=== PATIENT | male | born 1965 | race Caucasian/White ===

== ENCOUNTER 2016-08-06 09:30 | Emergency (ER) | payer BC ==
[2016-08-06 09:36] VITALS: BP 139/87
[2016-08-06] MEDS ORDERED: Acetaminophen TAB* 325 MG PO ONE (09:52)
--- NOTE | 2016-08-06 09:58 | ED ---
Skin Complaint - HPI Summary HPI Summary: Pt here w/ Lt hand laceration prior to arrival. Was at work cleaning a spackle knife when it accidentally slipped and cut the knuckle of his index finger. Bled so he applied a bandaid and pressure. Bleeding controlled at this time. Denies numbness, tingling, weakness. Does not believe any foreign body particles are present in wound as knife was clean. Moving finger well. Imms are UTD. - History of Current Complaint Chief Complaint: EDLacSutureRecheck Time Seen by Provider: 08/06/16 09:39 Stated Complaint: HAND LAC Hx Obtained From: Patient Pain Intensity: 5 - Additional Pertinent History Primary Care Physician: MARY - Allergy/Home Medications Allergies/Adverse Reactions: Allergies Allergy/AdvReac Type Severity Reaction Status Date / Time No Known Allergies Allergy Verified 02/08/15 16:38 PMH/Surg Hx/FS Hx/Imm Hx Previously Healthy: Yes Endocrine/Hematology History: Reports: Hx Diabetes - CONTROLLED BY DIET and metformin Denies: Hx Anticoagulant Therapy, Hx Blood Disorders, Hx Bone Marrow Disease , Hx Sickle Cell Disease, Hx Anemia Cardiovascular History: Denies: Hx Congestive Heart Failure, Hx Hypertension GI History: Reports: Hx Ulcer Denies: Hx Cirrhosis, Hx Crohn's Disease, Hx Diverticulosis, Hx Gall Bladder Disease, Hx Gastroesophageal Reflux Disease History: Denies: Hx Kidney Stones, Hx Renal Disease Sensory History: Denies: Hx Cataracts, Hx Contacts or Glasses, Hx Eye Injury, Hx Eye Prosthesis Opthamlomology History: Denies: Hx Cataracts, Hx Contacts or Glasses, Hx Eye Injury, Hx Eye Prosthesis - Surgical History Surgery Procedure, Year, and Place: APPENDECTOMY Hx Anesthesia Reactions: No - Immunization History Date of Tetanus Vaccine: Unk Date of Influenza Vaccine: None Infectious Disease History: No Infectious Disease History: Denies: Hx of Known/Suspected MRSA, History Other Infectious Disease, Traveled Outside the [place] in Last 30 Days - Family History Known Family History: Positive: None - Social History Alcohol Use: Weekly Alcohol Amount: 3-4x times a wk Hx Substance Use: No Substance Use Type: Reports: None Smoking Status (MU): Current Every Day Smoker Type: Cigarettes Amount Used/How Often: 1 ppd "or less" Length of Time of Smoking/Using Tobacco: 20 yrs Have You Smoked in the Last Year: Yes Review of Systems Negative: Fever, Chills Negative: Chest Pain Negative: Shortness Of Breath Positive: Nausea - gets queasy w/ pain, blood, needles Positive: no symptoms reported Musculoskeletal: Other - see HPI Skin: Other - see HPI Neurological: Negative Positive: Anxious All Other Systems Reviewed And Are Negative: Yes Physical Exam Triage Information Reviewed: Yes Vital Signs On Initial Exam: Initial Vitals Temp Pulse Resp BP Pulse Ox 97.2 F 84 20 139/87 98 08/06/16 09:32 08/06/16 09:32 08/06/16 09:32 08/06/16 09:32 08/06/16 09:32 Vital Signs Reviewed: Yes Appearance: Positive: Well-Appearing, No Pain Distress, Well-Nourished Skin: Positive: Warm - linear laceration over dorsal aspect of 2nd MCP joint - no active bleeding, subcutaneous tissue observed Head/Face: Positive: Normal Head/Face Inspection Eyes: Positive: Normal, EOMI ENT: Positive: Hearing grossly normal, Pharynx normal - mucosa moist Respiratory/Lung Sounds: Positive: Breath Sounds Present Cardiovascular: Positive: Normal, Pulses are Symmetrical in both Upper and Lower Extremities - cap refill < 2 secs Musculoskeletal: Positive: Normal, Strength/ROM Intact Neurological: Positive: Normal, Sensory/Motor Intact, Alert, Oriented to Person Place, Time Psychiatric: Positive: Normal - concerned Procedures - Laceration/Wound Repair 1 Location: upper extremity - 2ND MCP OF LT INDEX FINGER Description: Linear Length, Depth and Shape: 1.5CM X 3mm Betadine Prep?: No - hibaclens irrigation with alcohol skin prep Closure: Skin Adhesive, SteriStrips - 3 w/ finger splint Layer Closure?: No Sterile Dressing Applied?: Yes - dermabond + steristrips + DONYA wrap Diagnostics - Vital Signs Vital Signs Temp Pulse Resp BP Pulse Ox 08/06/16 09:32 97.2 F 84 20 139/87 98 - Laboratory Lab Statement: Any lab studies that have been ordered have been reviewed, and results considered in the medical decision making process. Course/Dx - Course Course Of Treatment: Conversation w/ pt re: sutures vs. dermabond plus steristrips - pt prefers steristrips and dermabond - understands importance of keeping joint immobilized, dry and clean in order for skin to heal w/o infection. Advised to f/u w/ PCP for wound check. Reviewed danger s/sx of when to return to ED. Pt agrees w/ plan. - Diagnoses Provider Diagnoses: FINGER LACERATION Discharge - Discharge Plan Condition: Stable Disposition: HOME Patient Education Materials: Finger Laceration (ED), Skin Adhesive Care (ED), Steristrips (ED) Referrals: Justo Martell MD [Primary Care Provider] - Additional Instructions: Rest, elevate, ice for pain You may take acetaminophen 650mg every 6 hours as needed for pain as well Keep wound clean and dry - do not wash or peel steristrips from skin as they will come off on their own. Keep splint in place for 10-14 days until wound heals. Follow-up with PCP for wound check in 5 days. *If you develop redness, streaking, swelling, purulent drainage, fever, chills seek medical attention sooner than later - may return here or see PCP
== END 2016-08-06 10:18 | disposition home or self-care (01) ==
LOC: ED 09:30
DX: S61.412A Laceration without foreign body of left hand, initial encounter (principal); R11.0 Nausea; W26.0XXA Contact with knife, initial encounter; Y93.9 Activity, unspecified; Y92.9 Unspecified place or not applicable; F17.210 Nicotine dependence, cigarettes, uncomplicated
CPT/HCPCS: 99281; A9270-GY

== ENCOUNTER 2016-09-27 11:31 | Emergency (ER) | payer BC ==
[2016-09-27] MEDS ORDERED: Cyclobenzaprine TAB* 10 MG PO ONE (11:46)
[2016-09-27] MEDS ORDERED: Ketorolac INJ* 60 MG/2 ML VIAL IM ONE (11:46)
--- NOTE | 2016-09-27 12:04 | ED ---
Back Pain - HPI Summary HPI Summary: Patient arrives to the ED with CC of low back pain after injury 3 weeks ago. He states he was picking up a 150lb tool box and felt immediate sharp pain in his right lower back which radiates to the right anterior leg and knee. He has been going to see a chiropractor with no relief. Pain is 9/10 and he notes to numbness and tingling in the right anterior leg, but no numbness in the back. Denies bladder or bowel dysfunction. His states there is a bulge in his lower back that was not there previously. - History of Current Complaint Chief Complaint: EDBackInjuryPain Stated Complaint: BACK PAIN Time Seen by Provider: 09/27/16 11:37 Hx Obtained From: Patient Onset/Duration: Sudden Onset Onset/Duration: Started Days Ago Timing: Constant Back Pain Location: Is Discrete @ - L4-L5 Severity Initially: Severe Severity Currently: Severe Pain Intensity: 9 Pain Scale Used: 0-10 Numeric Character: Aching, Spasmodic Aggravating Symptom(s): Lifting, Bending, Walking Alleviating Symptom(s): Rest, Position Associated Signs And Symptoms: Positive: Weakness, Numbness, Tingling - Risk Factors AAA Risk Factors: Negative TAD Risk Factors: Negative Cauda Equina Risk Factors: Negative Epidural Abscess Risk Factors: Negative - Allergies/Home Medications Allergies/Adverse Reactions: Allergies Allergy/AdvReac Type Severity Reaction Status Date / Time No Known Allergies Allergy Verified 02/08/15 16:38 PMH/Surg Hx/FS Hx/Imm Hx Previously Healthy: Yes Endocrine/Hematology History: Reports: Hx Diabetes - CONTROLLED BY DIET and metformin Denies: Hx Anticoagulant Therapy, Hx Blood Disorders, Hx Bone Marrow Disease , Hx Sickle Cell Disease, Hx Anemia Cardiovascular History: Denies: Hx Congestive Heart Failure, Hx Hypertension GI History: Reports: Hx Ulcer Denies: Hx Cirrhosis, Hx Crohn's Disease, Hx Diverticulosis, Hx Gall Bladder Disease, Hx Gastroesophageal Reflux Disease History: Denies: Hx Kidney Stones, Hx Renal Disease Sensory History: Denies: Hx Cataracts, Hx Contacts or Glasses, Hx Eye Injury, Hx Eye Prosthesis Opthamlomology History: Denies: Hx Cataracts, Hx Contacts or Glasses, Hx Eye Injury, Hx Eye Prosthesis - Cancer History Hx Radiation Therapy: No Hx Palliative Cancer Treatment: No - Surgical History Surgery Procedure, Year, and Place: APPENDECTOMY Hx Anesthesia Reactions: No - Immunization History Date of Tetanus Vaccine: Unk Date of Influenza Vaccine: None Hx Pertussis Vaccination: No Immunizations Up to Date: No Infectious Disease History: Denies: Hx of Known/Suspected MRSA, History Other Infectious Disease, Traveled Outside the [place] in Last 30 Days - Family History Known Family History: Positive: None - Social History Occupation: Employed Full-time Lives: With Family Alcohol Use: None Alcohol Amount: 3-4x times a wk Hx Substance Use: No Substance Use Type: Reports: None Hx Tobacco Use: Yes Smoking Status (MU): Current Every Day Smoker Type: Cigarettes Do You Chew or Dip Tobacco: No Amount Used/How Often: 1 ppd "or less" Have You Chewed or Dipped Tobacco in the LAST YEAR: No Length of Time of Smoking/Using Tobacco: 20 yrs Have You Smoked in the Last Year: Yes Review of Systems Constitutional: Negative Cardiovascular: Negative Respiratory: Negative Positive: no symptoms reported, see HPI Positive: Arthralgia - lumbar spine around L4-S1 pain on palpation, Myalgia Skin: Negative Positive: Weakness, Paresthesia, Numbness Psychological: Normal All Other Systems Reviewed And Are Negative: Yes Physical Exam Triage Information Reviewed: Yes Vital Signs On Initial Exam: Initial Vitals Temp Pulse Resp BP Pulse Ox 98.4 F 90 20 164/95 99 09/27/16 11:33 09/27/16 11:33 09/27/16 11:33 09/27/16 11:33 09/27/16 11:33 Vital Signs Reviewed: Yes Appearance: Positive: Well-Nourished, Pain Distress Skin: Positive: Warm, Skin Color Reflects Adequate Perfusion Head/Face: Positive: Normal Head/Face Inspection Neck: Positive: Supple, No Lymphadenopathy Respiratory/Lung Sounds: Positive: Clear to Auscultation, Breath Sounds Present Cardiovascular: Positive: Normal, RRR, Pulses are Symmetrical in both Upper and Lower Extremities Musculoskeletal: Positive: Limited @ - rotation, Abnormal @ - L4-S1, Pain @ - L4 -S1 Neurological: Positive: Sensory/Motor Intact, Speech Normal Psychiatric: Positive: Normal AVPU Assessment: Alert - [place] Coma Scale Coma Scale Total: 15 Diagnostics - Vital Signs Vital Signs Temp Pulse Resp BP Pulse Ox 09/27/16 11:36 98.4 F 84 20 164/95 99 09/27/16 11:33 98.4 F 90 20 164/95 99 - Laboratory Lab Statement: Any lab studies that have been ordered have been reviewed, and results considered in the medical decision making process. 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 IN ADDITION AT THE L5-S1 LEVEL THERE IS A SMALL RIGHT POSTEROLATERAL DISC PROTRUSION WHICH CAUSES MILD MASS EFFECT ON THE RIGHT S1 NERVE ROOT IN THE LATERAL RECESS. IF THE PATIENT'S SYMPTOMS PERSIST, RECOMMEND MR IMAGING. Back Pain Course/Dx - Course Course Of Treatment: Patient sent to CT. CT results showed: IMPRESSION: MILD DIFFUSE LUMBAR SPONDYLOSIS CAUSING MILD SPINAL CANAL NARROWING AT THE. L2-L3, L3-L4 AND L4-L5 LEVELS. IN ADDITION AT THE L5-S1 LEVEL THERE IS A SMALL RIGHT. POSTEROLATERAL DISC PROTRUSION WHICH CAUSES MILD MASS EFFECT ON THE RIGHT S1 NERVE ROOT IN. THE LATERAL RECESS. IF THE PATIENT'S SYMPTOMS PERSIST, RECOMMEND MR IMAGING. Given follow up with Dr. Meek. Flexeril and percoset given for pain. Encouraged rest. Educated about disc herniations. Patient OK to follow up with [facility] for discharge. During stay he was given flexeril and percoset and toradol with minimal relief. - Diagnoses Differential Diagnosis/HQI/PQRI: Positive: Fracture, Herniated Disc, Strain, Sprain Provider Diagnoses: Herniated disc Discharge - Discharge Plan Condition: Stable Disposition: HOME Prescriptions: Cyclobenzaprine TAB* [Flexeril TAB*] 10 mg PO BID PRN #10 tab PRN Reason: Pain oxyCODONE/Acetamin 10/325(NF) [Percocet 10/325 (NF)] 1 tab PO Q6H #16 tab MDD 4 Patient Education Materials: Lumbar Disc Herniation (ED), Lumbar Radiculopathy (ED) Referrals: Cali Meek MD [Medical Doctor] - Justo Martell MD [Primary Care Provider] - Additional Instructions: Dx: Herniated Disc Flexeril: This medication is a muscle relaxant and can help relieve muscle spasms, muscle strain, or pain sensations. Flexeril can cause side effects that may impair your thinking or reactions. Be careful if you drive or do anything that requires you to be awake and alert. Avoid drinking alcohol, which can increase some of the side effects of Flexeril. Ibuprofen 600mg three times daily with meals for discomfort. For pain not well controlled with ibuprofen, you may supplement with Oxycodone. Return to ED if symptoms worsen or fail to improve, notice worsening swelling, warmth or redness around the joint, develop fever, or pain is uncontrolled with OTC medications. Moist heat to the area for comfort. Warm showers or baths may improve symptoms. It is important to remain mobile as tolerated to prevent stiffening of the joints and delay healing. Follow up with your PCP. Follow up with Cali TrevinosMD office. If symptoms become worse, come back to ED
--- NOTE | 2016-09-27 12:37 | RAD ---
INDICATION: Low back pain. COMPARISON: There are no prior studies available for comparison. TECHNIQUE: Contiguous axial sections were obtained beginning above the T12 vertebra and continuing through the L5-S1 disc space. Images were reconstructed in the sagittal and coronal planes. FINDINGS: The vertebra are in normal alignment. No fracture is seen. At the L2-L3 level there is a mild broad-based disc bulge and mild hypertrophic changes within the facet joints. There is mild spinal canal narrowing. Neural foramen appear patent on both sides. At the L3-L4 level there is a mild broad-based disc bulge and mild hypertrophic changes within the facet joints. There is mild spinal canal narrowing. Neural foramen appear patent on both sides. At the L4-L5 level there is again a mild broad-based is bulge and mild hypertrophic changes within the facet joints. There is mild to moderate spinal canal narrowing and mild bilateral neural foraminal narrowing. At the L5-S1 level there is a small right posterior lateral disc protrusion which abuts and slightly displaces the right S1 nerve root in the lateral recess. No spinal canal narrowing is present. There are mild hypertrophic changes within the facet joints. Neural foramen appear patent on both sides. IMPRESSION: MILD DIFFUSE LUMBAR SPONDYLOSIS CAUSING MILD SPINAL CANAL NARROWING AT THE L2-L3, L3-L4 AND L4-L5 LEVELS. IN ADDITION AT THE L5-S1 LEVEL THERE IS A SMALL RIGHT POSTEROLATERAL DISC PROTRUSION WHICH CAUSES MILD MASS EFFECT ON THE RIGHT S1 NERVE ROOT IN THE LATERAL RECESS. IF THE PATIENT'S SYMPTOMS PERSIST, RECOMMEND MR IMAGING.
[2016-09-27] MEDS ORDERED: HYDROcodone/ACETAMIN 5-325 MG* 1 TAB PO ONE (12:51)
[2016-09-27 13:08] VITALS: BP 148/82
== END 2016-09-27 13:07 | disposition home or self-care (01) ==
LOC: ED 11:31
DX: M51.26 Other intervertebral disc displacement, lumbar region (principal); M47.896 Other spondylosis, lumbar region; E11.9 Type 2 diabetes mellitus without complications; Z79.84 Long term (current) use of oral hypoglycemic drugs; F17.210 Nicotine dependence, cigarettes, uncomplicated
CPT/HCPCS: 72131; 96372; 99282; A9270-GY; J1885

== ENCOUNTER 2016-11-17 15:53 | Emergency (ER) | payer BC ==
[2016-11-17] MEDS ORDERED: Pantoprazole IV* 40 MG IV ONE (16:37)
[2016-11-17] MEDS ORDERED: Metoclopramide IV* 5 MG/ML 2 ML VIAL IV ONE (16:37)
[2016-11-17] MEDS ORDERED: HYDROmorphone* 1 MG/ML 1 ML SYR IV ONE (16:37)
[2016-11-17] MEDS ORDERED: NS 0.9% 1000 ML* 3,000 ML IV ONE (16:37)
[2016-11-17] MEDS ORDERED: Ondansetron INJ* 2 MG/ML VIAL IV ONE (19:00)
--- NOTE | 2016-11-17 19:01 | ED ---
[place] Nicole Salem, scribed for Zoltan Cullen MD on 11/17/16 at 1636 . Abdominal Pain/Male - HPI Summary HPI Summary: Patient is a 51 y/o M who presents to the ED with epigastric abd pain since 0500 today. He states that he has been chills and vomiting since onset of pain, but he denies CP, SOB, or fever. PMHx of ulcer (6) and diverticulitis. PSHx of appendectomy, approximately 1year ago. Pt has not taken any pain medications, but he took Zofran at 0300; however, vomited after taking. PMHx of HLD as well. - History of Current Complaint Chief Complaint: EDAbdPain Stated Complaint: VOMITING,FEVER,CHILLS,ABD PAIN Time Seen by Provider: 11/17/16 16:23 Hx Obtained From: Patient Onset/Duration: Gradual Onset, Lasting Hours, Still Present Timing: Constant Severity Initially: Moderate Severity Currently: Moderate Pain Intensity: 9 Pain Scale Used: 0-10 Numeric Location: Epigastric Radiates: No Character: Sharp Aggravating Factor(s): Food Alleviating Factor(s): NPO Associated Signs And Symptoms: Positive: Vomiting, Other - Abd pain. - Allergies/Home Medications Allergies/Adverse Reactions: Allergies Allergy/AdvReac Type Severity Reaction Status Date / Time No Known Allergies Allergy Verified 11/17/16 16:11 PMH/Surg Hx/FS Hx/Imm Hx Endocrine/Hematology History: Reports: Hx Diabetes - CONTROLLED BY DIET and metformin Denies: Hx Anticoagulant Therapy, Hx Blood Disorders, Hx Bone Marrow Disease , Hx Sickle Cell Disease, Hx Anemia Cardiovascular History: Denies: Hx Congestive Heart Failure, Hx Hypertension GI History: Reports: Hx Ulcer Denies: Hx Cirrhosis, Hx Crohn's Disease, Hx Diverticulosis, Hx Gall Bladder Disease, Hx Gastroesophageal Reflux Disease History: Denies: Hx Kidney Stones, Hx Renal Disease Sensory History: Denies: Hx Cataracts, Hx Contacts or Glasses, Hx Eye Injury, Hx Eye Prosthesis Opthamlomology History: Denies: Hx Cataracts, Hx Contacts or Glasses, Hx Eye Injury, Hx Eye Prosthesis - Cancer History Hx Radiation Therapy: No Hx Palliative Cancer Treatment: No - Surgical History Surgery Procedure, Year, and Place: APPENDECTOMY Hx Anesthesia Reactions: No - Immunization History Date of Tetanus Vaccine: Unk Date of Influenza Vaccine: None Infectious Disease History: Denies: Hx of Known/Suspected MRSA, History Other Infectious Disease, Traveled Outside the [place] in Last 30 Days - Family History Known Family History: Negative: Cardiac Disease, Hypertension - Social History Alcohol Use: None Alcohol Amount: 3-4x times a wk Hx Substance Use: No Substance Use Type: Reports: None Hx Tobacco Use: Yes Smoking Status (MU): Current Every Day Smoker Type: Cigarettes Amount Used/How Often: 1 ppd "or less" Length of Time of Smoking/Using Tobacco: 20 yrs Have You Smoked in the Last Year: Yes Review of Systems Positive: Chills. Negative: Fever Negative: Chest Pain Negative: Shortness Of Breath Positive: Abdominal Pain, Nausea All Other Systems Reviewed And Are Negative: Yes Physical Exam - Summary Physical Exam Summary: The patient is well-nourished and in no acute pain. Mild distress. Alert and oriented. The skin is warm and dry and skin color reflects adequate perfusion. HEENT: The head is normocephalic and atraumatic. The pupils are equal and reactive. The conjunctivae are clear and without drainage. Nares are patent and without drainage. Mouth reveals moist mucous membranes and the throat is without erythema and exudate. The external ears are intact. The ear canals are patent and without drainage. The tympanic membranes are intact. DMM. Neck is supple with full range of motion and non-tender. There are no carotid bruits. There is no neck vein distension. Respiratory: Chest is non-tender. Lungs are clear to auscultation and breath sounds are symmetrical and equal. Cardiovascular: Heart is regular rate and rhythm. There is no murmur or rub auscultated. There is no peripheral edema and pulses are symmetrical and equal. Abdomen: The abdomen is soft. Marked upper gastric and RLQ tenderness. Tender to percussion. Mildly distended abd. Musculoskeletal: There is no back pain noted. Extremities are non-tender with full range of motion. There is good capillary refill. Neurological: Patient is alert and oriented to person, place and time. The patient has symmetrical motor strength in all four extremities. Psychiatric: The patient has an appropriate affect and does not exhibit any anxiety or depression. Triage Information Reviewed: Yes Vital Signs On Initial Exam: Initial Vitals Temp Pulse Resp BP Pulse Ox 97.7 F 91 20 187/103 100 11/17/16 16:11 11/17/16 16:11 11/17/16 16:11 11/17/16 16:11 11/17/16 16:11 Vital Signs Reviewed: Yes - Fel[place] Coma Scale Coma Scale Total: 15 Diagnostics - Vital Signs Vital Signs Temp Pulse Resp BP Pulse Ox 11/17/16 16:26 98.2 F 81 16 174/93 100 11/17/16 16:11 97.7 F 91 20 187/103 100 - Laboratory Lab Statement: Any lab studies that have been ordered have been reviewed, and results considered in the medical decision making process. - Radiology CXR Radiology Interpretation Completed By: Radiologist - IMPRESSION: see EMR pending radiology reading. - CT ABD/PELVIS CT Interpretation Completed By: Radiologist - IMPRESSION: see EMR pending radiology reading. - EKG 1705 EKG Interpretation: NSR @ 86 bpm with PACs. Nml axis. No STEMI. Abdominal Pain Fem Course/Dx - Course Course Of Treatment: 51 y/o M presents with epigastric abd pain since 0500 today. He states that he has been chills and vomiting since onset of pain, but he denies CP, SOB, or fever. Pt received Dilaudid, fluids, Reglan, and Protonix in ED. EKG shows NSR @ 86 bpm with PACs. Nml axis. No STEMI. CXR and CT taken. Pt signed out at shift change. Pending labs, CXR, and CT. - Diagnoses Differential Diagnosis/HQI/PQRI: Bowel Obstruction, Gall Bladder Disease, Ischemic Bowel, Pancreatitis, Peptic Ulcer Disease, Other - perforated viscus Provider Diagnoses: Abdominal pain - Critical Care Time Critical Care Time: 30-74 min - 30 minutes Discharge - Discharge Plan Condition: Stable Disposition: OTHER Discharge Disposition Comment: Signed out to Dr. Apple. Referrals: Cali Mathews MD [Primary Care Provider] - The documentation as recorded by the [place] calderon Salem accurately reflects the service I personally performed and the decisions made by me, Zoltan Cullen MD.
[2016-11-17] MEDS ORDERED: HYDROmorphone* 2 MG/ML 1 ML SYR IV SLOW PU ONE (19:33)
[2016-11-17] MEDS ORDERED: NS 0.9% 1000 ML* 1,000 ML IV ONE (19:34)
[2016-11-17 20:04] LABS: Hematocrit 47 % (42-52); Hemoglobin 15.4 g/dl (14.0-18.0); Mean Corpuscular HGB Conc 33 g/dl (31-36); Mean Corpuscular Hemoglobin 31 pg (27-31); Mean Corpuscular Volume 94 fL (80-94); Mean Platelet Volume 9 um3 (7.4-10.4); Red Cell Distribution Width 13 % (10.5-15); White Blood Count 10.7 10^3/ul (3.5-10.8)
[2016-11-17 20:05] LABS: ALT 35 U/L (7-52); AST 20 U/L (13-39); Albumin 4.9 g/dL (3.2-5.2); Alkaline Phosphatase 63 U/L (34-104); Amylase 49 U/L (29-103); Anion Gap 11 mmol/L (2-11); Blood Urea Nitrogen 17 mg/dL (6-24); C Reactive Protein < 1.00 mg/L (< 5.00); CO2 Carbon Dioxide 24 mmol/L (22-32); Calcium 10.1 mg/dL (8.6-10.3); Chloride 102 mmol/L (101-111); EGFR African American 128.7 (>60); EGFR Non-African American 100.1 (>60); Globulin 2.8 g/dL (2-4); Glucose 196 mg/dL (70-100); Lipase 18 U/L (11.0-82.0); Potassium 3.7 mmol/L (3.5-5.0); Sodium 137 mmol/L (133-145); Total Protein 7.7 g/dL (6.4-8.9)
[2016-11-17 20:16] LABS: Urine Bacteria Absent (Absent); Urine Bilirubin Negative (Negative); Urine Glucose 1+(50 mg/dL) (Negative); Urine Nitrite Negative (Negative)
[2016-11-17 20:28] LABS: Creatine Kinase 114 U/L (10-223)
--- NOTE | 2016-11-17 20:42 | RAD ---
INDICATION: Epigastric pain. COMPARISON: CT February 08, 2015 TECHNIQUE: Axial source images were obtained from the hemidiaphragms to the symphysis pubis following administration of oral and intravenous contrast. 117 mL Omnipaque 300 was utilized. Coronal and sagittal reconstructed images were acquired. Lung bases: There is minor gravity dependent atelectasis in the lung bases. Liver: The liver is normal in size. There are no masses. There is no ductal dilatation. Gallbladder: There are no calcified gallstones. There is no evidence of wall thickening or pericholecystic fluid. Spleen: The spleen is normal in size. There are no masses. Pancreas: There is no focal pancreatic mass or ductal dilatation. Adrenal glands: There is no evidence of adrenal mass. Kidneys: The kidneys are normal in size and position. There are prompt nephrograms and there is prompt excretion bilaterally. There are no renal parenchymal masses. There is no evidence of nephrolithiasis. Adenopathy: There is no evidence of adenopathy by size criteria. Fluid collections: There are no free or localized fluid collections. Vessels:There are no significant atherosclerotic changes involving the aorta. There is no focal aneurysm. The iliac vessels are normal in caliber. The IVC appears normal. GI tract: There are no acute CT bowel findings. There is no obstruction. The stomach and small bowel appear normal. There are moderate diverticula of the sigmoid colon and scattered diverticula of the descending colon. There is no CT evidence of acute diverticulitis. There is appendectomy Pelvic organs: The prostate and seminal vesicles appear normal Bladder: There are no bladder masses. Abdominal and pelvic soft tissues: The extraperitoneal abdominal and pelvic soft tissues appear normal.. Osseous structures: There are no acute osseous findings. Other: None IMPRESSION: NO ACUTE CT FINDINGS. THERE ARE SIGMOID DIVERTICULA BUT NO CT EVIDENCE OF ACUTE DIVERTICULITIS.
[2016-11-17 20:55] LABS: Magnesium 1.8 mg/dL (1.9-2.7)
[2016-11-17 22:01] VITALS: BP 125/69
[2016-11-17] MEDS ORDERED: Magnesium Oxide TAB* 400 MG PO ONE (22:15)
[2016-11-17] MEDS ORDERED: Ondansetron ODT TAB* 4 MG PO ONE (22:47)
--- NOTE | 2016-11-18 02:07 | ED ---
I, Jair Mcguire, scribed for Cielo Apple MD on 11/17/16 at 1932 . Progress - Progress Note Progress Note: Signout pt from Dr. Cullen. This is a 51yo male c/o epigastric abdominal pain since 0500 today. Pt states he had bad back pain, so started taking alot of ibuprofen. Also admits ETOH 3x week. States he has hx PUD, has been scoped in the past. Denies melena, hematochezia. Pt reports chills and vomiting since the onset of pain. PHSx of appendectomy. Pending CT report and labs - Results/Orders Results/Orders: ABD/PELV CT W IMPRESSION: NO ACUTE CT FINDINGS. THERE ARE SIGMOID DIVERTICULA BUT NO CT EVIDENCE OF ACUTE DIVERTICULITIS. Re-Evaluation - Re-Evaluation First Eval Re-Evaluation Time: 19:31 Change: Unchanged - pt is still in pain. Epigastric tenderness. Good bowel sounds. We will give more pain med and IV fluids for his nausea and abdominal pain. Second Eval Re-Evaluation Time: 22:21 Comment: Discussed lab and imaging results with the pt, as well as pt's course of treatment and disposition. Upon re-evaluation, abdomen is soft non tender. No guarding, no rebound. Course/Dx - Course Course Of Treatment: Reviewed medication lists and known allergies. CT and labs do not reveal the source of pt's pain. With the ETOH, and large doses of ibuprofen, and hx PUD, suspect gastritis or early PUD. Pt is on omeprazole, has been scoped by Dr. Case in the past. Pt advised to have definite follow up with Dr. Case. Pt prescribed hydrocodone for his back pain, with zofran, so he does not need continued ibuprofen. Given only 3 day supply, advised to have definite follow up. Pt had slight low magnesium, replaced po. - Diagnoses Provider Diagnoses: Abdominal pain, Tobacco abuse disorder, Blood pressure under poor control, Hypomagnesemia - Critical Care Time Critical Care Time: 30-74 min - 30 minutes The documentation as recorded by the Maynor calderon Benjamin accurately reflects the service I personally performed and the decisions made by me, Cieol Apple MD.
== END 2016-11-17 23:05 | disposition home or self-care (01) ==
LOC: ED 15:53
DX: R10.9 Unspecified abdominal pain (principal); R11.10 Vomiting, unspecified; E83.42 Hypomagnesemia; F17.210 Nicotine dependence, cigarettes, uncomplicated
CPT/HCPCS: 36415; 74177; 80053; 81003; 81015; 82150; 82550; 83605; 83690; 83735; 84484; 85025; 85610; 86140; 93005; 96374; 96375; 99282; A9270-GY; J1170; J2405; Q9967

== ENCOUNTER 2016-12-16 16:17 | Emergency (ER) | payer BC ==
[2016-12-16 16:23] VITALS: BP 156/100
[2016-12-16] MEDS ORDERED: Ondansetron INJ* 2 MG/ML VIAL IV ONE (17:23)
[2016-12-16] MEDS ORDERED: Pantoprazole IV* 40 MG IV ONE (17:23)
[2016-12-16] MEDS: NS 0.9% 1000 ML* 2,000 ML IV ONE (17:57)
[2016-12-16] MEDS ORDERED: fentaNYL* 50 MCG/ML 2 ML VIAL (100 MCG VIAL) IV SLOW PU ONE ×2 (18:03→18:57)
[2016-12-16 18:13] LABS: Hematocrit 49 % (42-52); Hemoglobin 16.7 g/dl (14.0-18.0); Mean Corpuscular HGB Conc 34 g/dl (31-36); Mean Corpuscular Hemoglobin 32 pg (27-31); Mean Corpuscular Volume 95 fL (80-94); Mean Platelet Volume 8 um3 (7.4-10.4); Red Blood Count 5.18 10^6/ul (4.0-5.4); Red Cell Distribution Width 13 % (10.5-15); White Blood Count 9.2 10^3/ul (3.5-10.8)
[2016-12-16 18:29] LABS: ALT 34 U/L (7-52); AST 21 U/L (13-39); Albumin 4.6 g/dL (3.2-5.2); Alkaline Phosphatase 47 U/L (34-104); Amylase 36 U/L (29-103); Anion Gap 12 mmol/L (2-11); Blood Urea Nitrogen 17 mg/dL (6-24); C Reactive Protein < 1.00 mg/L (< 5.00); CO2 Carbon Dioxide 24 mmol/L (22-32); Calcium 9.8 mg/dL (8.6-10.3); Chloride 97 mmol/L (101-111); EGFR African American 121.7 (>60); EGFR Non-African American 94.7 (>60); Globulin 3.2 g/dL (2-4); Glucose 157 mg/dL (70-100); Lipase 16 U/L (11.0-82.0); Potassium 3.4 mmol/L (3.5-5.0); Sodium 133 mmol/L (133-145); Total Protein 7.8 g/dL (6.4-8.9)
[2016-12-16 18:30] LABS: Troponin I 0.01 ng/mL (<0.04)
[2016-12-16] MEDS ORDERED: Potassium Chlor TAB* 20 MEQ TAB.ER PO ONE (18:48)
--- NOTE | 2016-12-16 18:57 | RAD ---
HISTORY: Epigastric pain, right upper quadrant pain COMPARISONS: November 17, 2016 CT TECHNIQUE: Multiple transverse and longitudinal ultrasound images were obtained of the right upper quadrant of the abdomen using grayscale and color Doppler imaging. FINDINGS: LIVER: The liver is normal in shape, size, contour, and echogenicity. There are no focal parenchymal masses. There is normal hepatopedal flow of the portal vein on Doppler imaging. BILIARY TREE: There is no intrahepatic or extrahepatic biliary dilatation. The common duct measures 0.4 cm. GALLBLADDER: The gallbladder is well-visualized. There is no cholelithiasis, gallbladder wall thickening, pericholecystic fluid, or sonographic Musa sign. PANCREAS: The head of the pancreas is unremarkable. The tail of the pancreas is not well visualized secondary to overlying bowel gas. RIGHT KIDNEY: The right kidney is normal in shape, size, contour, and echogenicity. There is no hydronephrosis or nephrolithiasis. The right kidney measures 11.2 x 6.2 x 4.9 cm. AORTA AND IVC: The aorta and IVC are unremarkable. FLUID: There are no pleural effusions. There is no free fluid within the hepatorenal recess. OTHER FINDINGS: None. IMPRESSION: NO ACUTE SONOGRAPHIC PATHOLOGY OF THE VISUALIZED PORTION OF THE ABDOMEN
--- NOTE | 2016-12-17 19:51 | ED ---
Erma Nicole Alfonso, scribed for Sree Jacobs MD on 12/16/16 at 1728 . Abdominal Pain/Male - HPI Summary HPI Summary: This patient is a 51 year old M presenting to [facility] accompanied by with a chief complaint of epigastric abdominal pain since two days ago. He reports the pain in one inch underneath my ribs. Pt rates the pain 8/10 in severity. Symptoms aggravated and alleviated by nothing. Pt reports N/V. Pt denies CP, SOB , fever, chills, heart burn. Tobacco abuse disorder. - History of Current Complaint Chief Complaint: EDAbdPain Stated Complaint: ABD PAIN,VOMITING Time Seen by Provider: 12/16/16 17:16 Hx Obtained From: Patient Onset/Duration: Sudden Onset, Lasting Days - 2, Still Present Timing: Constant Severity Initially: Severe Severity Currently: Severe Pain Intensity: 8 Pain Scale Used: 0-10 Numeric Location: Epigastric Aggravating Factor(s): Nothing Alleviating Factor(s): Nothing Associated Signs And Symptoms: Positive: Nausea, Vomiting, Other - Negative chills, SOB, and heart burn.. Negative: Fever, Chest Pain - Allergies/Home Medications Allergies/Adverse Reactions: Allergies Allergy/AdvReac Type Severity Reaction Status Date / Time No Known Allergies Allergy Verified 11/17/16 16:11 PMH/Surg Hx/FS Hx/Imm Hx Endocrine/Hematology History: Reports: Hx Diabetes - CONTROLLED BY DIET and metformin Denies: Hx Anticoagulant Therapy, Hx Blood Disorders, Hx Bone Marrow Disease , Hx Sickle Cell Disease, Hx Anemia Cardiovascular History: Denies: Hx Congestive Heart Failure, Hx Hypertension, Hx Pacemaker/ICD Respiratory History: Denies: Hx Asthma GI History: Reports: Hx Ulcer Denies: Hx Cirrhosis, Hx Crohn's Disease, Hx Diverticulosis, Hx Gall Bladder Disease, Hx Gastroesophageal Reflux Disease History: Denies: Hx Kidney Stones, Hx Renal Disease Sensory History: Denies: Hx Cataracts, Hx Contacts or Glasses, Hx Eye Injury, Hx Eye Prosthesis, Hx Hearing Aid Opthamlomology History: Denies: Hx Cataracts, Hx Contacts or Glasses, Hx Eye Injury, Hx Eye Prosthesis Psychiatric History: Denies: Hx Panic Disorder - Cancer History Hx Radiation Therapy: No Hx Palliative Cancer Treatment: No - Surgical History Surgery Procedure, Year, and Place: APPENDECTOMY;. COLONOSCOPY/ENDOSCOPY Hx Anesthesia Reactions: No - Immunization History Date of Tetanus Vaccine: Unk Date of Influenza Vaccine: None Infectious Disease History: No Infectious Disease History: Denies: Hx of Known/Suspected MRSA, History Other Infectious Disease, Traveled Outside the [place] in Last 30 Days - Family History Known Family History: Negative: Cardiac Disease, Hypertension - Social History Alcohol Use: None Alcohol Amount: 3-4x times a wk Hx Substance Use: No Substance Use Type: Reports: None Hx Tobacco Use: Yes Smoking Status (MU): Current Every Day Smoker Type: Cigarettes Amount Used/How Often: 1 ppd "or less" Length of Time of Smoking/Using Tobacco: 20 yrs Have You Smoked in the Last Year: Yes Review of Systems Negative: Fever, Chills Negative: Chest Pain Negative: Shortness Of Breath Positive: Abdominal Pain - Epigastric, Vomiting, Nausea, Other - Negative heart burn All Other Systems Reviewed And Are Negative: Yes Physical Exam - Summary Physical Exam Summary: VITAL SIGNS: Reviewed. GENERAL: Patient is a well-developed and nourished male who is lying comfortable in the stretcher. Patient is not in any acute respiratory distress. HEAD AND FACE: Normocephalic and atraumatic. EYES: PERRLA, EOMI x 2, No injected conjunctiva. EARS: Hearing grossly intact. Ear canals and tympanic membranes are WNL. MOUTH: Oropharynx within normal limits. NECK: Supple, trachea is midline, no adenopathy, no JVD. CHEST: Symmetric, no tenderness at palpation LUNGS: Clear to auscultation bilaterally. No wheezing or crackles. CVS: RRR, S1 and S2 present, no murmurs or gallops appreciated. ABDOMEN: Soft. Epigastric tenderness. No signs of distention. Positive bowel sounds. No rebound no guarding, and no masses palpated. No abdominal bruit or pulsations. EXTREMITIES: FROM in all major joints, no edema, no cyanosis or clubbing. NEURO: Alert and oriented x 3. No acute neurological deficits. Speech is normal. SKIN: Dry and warm Triage Information Reviewed: Yes Vital Signs On Initial Exam: Initial Vitals Temp Pulse Resp BP Pulse Ox 98.6 F 98 20 156/100 99 12/16/16 16:20 12/16/16 16:20 12/16/16 16:20 12/16/16 16:20 12/16/16 16:20 Vital Signs Reviewed: Yes Diagnostics - Vital Signs Vital Signs Temp Pulse Resp BP Pulse Ox 12/16/16 16:22 98.6 F 99 20 156/100 99 12/16/16 16:20 98.6 F 98 20 156/100 99 - Laboratory Lab Results: Lab Results 12/16/16 12/16/16 12/16/16 Range/Units 17:52 17:52 17:52 WBC 9.2 (3.5-10.8) 10^3/ul RBC 5.18 (4.0-5.4) 10^6/ul Hgb 16.7 (14.0-18.0) g/dl Hct 49 (42-52) % MCV 95 H (80-94) fL MCH 32 H (27-31) pg MCHC 34 (31-36) g/dl RDW 13 (10.5-15) % Plt Count 276 (150-450) 10^3/ul MPV 8 (7.4-10.4) um3 Neut % (Auto) 57.1 (38-83) % Lymph % (Auto) 32.4 (25-47) % Villalba % (Auto) 9.2 H (1-9) % Eos % (Auto) 0.3 (0-6) % Baso % (Auto) 1.0 (0-2) % Absolute Neuts (auto) 5.3 (1.5-7.7) 10^3/ul Absolute Lymphs (auto) 3.0 (1.0-4.8) 10^3/ul Absolute Monos (auto) 0.8 (0-0.8) 10^3/ul Absolute Eos (auto) 0 (0-0.6) 10^3/ul Absolute Basos (auto) 0.1 (0-0.2) 10^3/ul Absolute Nucleated RBC 0.01 10^3/ul Nucleated RBC % 0.1 Sodium 133 (133-145) mmol/L Potassium 3.4 L (3.5-5.0) mmol/L Chloride 97 L (101-111) mmol/L Carbon Dioxide 24 (22-32) mmol/L Anion Gap 12 H (2-11) mmol/L BUN 17 (6-24) mg/dL Creatinine 0.85 (0.67-1.17) mg/dL Est GFR ( Amer) 121.7 (>60) Est GFR (Non-Af Amer) 94.7 (>60) BUN/Creatinine Ratio 20.0 (8-20) Glucose 157 H (70-100) mg/dL Lactic Acid 1.0 (0.5-2.0) mmol/L Calcium 9.8 (8.6-10.3) mg/dL Magnesium 2.0 (1.9-2.7) mg/dL Total Bilirubin 0.80 (0.2-1.0) mg/dL AST 21 (13-39) U/L ALT 34 (7-52) U/L Alkaline Phosphatase 47 (34-104) U/L Troponin I 0.01 (<0.04) ng/mL C-Reactive Protein < 1.00 (< 5.00) mg/L Total Protein 7.8 (6.4-8.9) g/dL Albumin 4.6 (3.2-5.2) g/dL Globulin 3.2 (2-4) g/dL Albumin/Globulin Ratio 1.4 (1-3) Amylase 36 (29-103) U/L Lipase 16 (11.0-82.0) U/L Result Diagrams: 12/16/16 17:52 12/16/16 17:52 Lab Statement: Any lab studies that have been ordered have been reviewed, and results considered in the medical decision making process. - EKG 1843 Cardiac Rate: NL - BPM 72 EKG Rhythm: Sinus Rhythm EKG Interpretation: No ST elevation - Additional Comments Diagnostic Additional Comments: Gallbladder US : NO ACUTE SONOGRAPHIC PATHOLOGY OF THE VISUALIZED PORTION OF THE ABDOMEN Abdominal Pain Fem Course/Dx - Course Course Of Treatment: This patient is a 51 year old M presenting to [facility] accompanied by with a chief complaint of epigastric abdominal pain since two days ago. He reports the pain in one inch underneath my ribs. Pt rates the pain 8/10 in severity. Symptoms aggravated and alleviated by nothing. Pt reports N/V. Pt denies CP, SOB, fever, chills, heart burn. Tobacco abuse disorder. Assessment/Plan: Test results with no significant abnormalities except for potassium of 3.4, for which the patient was given potassium chloride. Troponin is 0.01. EKG shows no ST elevation. Therefore, I have low suspicion for acute coronary symptoms. Patient was seen exactly one month ago for the same symptoms during which he had a CT A/P which showed no acute findings. Therefore, I ordered an US to r/o gallstones. The US shows no acute pathology. In the ED course patient give IV fluids, Zofran, and morphine for the pain. He was also given protonix for the epigastric pain. He report feeling better. Nausea and pain has improved. He will be discharge home and will ask to f/u with PCP and GI. I discussed all the findings and test results with the patient. Patient was instructed to return to the emergency room immediately if any of the symptoms return or worsens. They were explained the possibility of an early abdominal pathology which was not detected at this time despite the physical exam and testing. They understand and agree. Abdominal exam before discharge: Soft, NT. No signs of distention. BS present. No rebound no guarding, and no masses palpated. Patient is alert and oriented and hemodynamically stable. Patient is to follow up with primary care physician in the next 2 to 3 days. Patient agree and understands. - Diagnoses Provider Diagnoses: Abdominal pain Discharge - Discharge Plan Condition: Stable Disposition: HOME Prescriptions: Ondansetron TAB* [Zofran 4 MG Tab*] 4 mg PO Q6H PRN #12 tab PRN Reason: Vomiting Oxycodone W/ Acetaminophen [Percocet 7.5-325 mg (NF)] 1 tab PO Q6H PRN #12 tab MDD 4 tabs PRN Reason: Pain Pantoprazole TAB (NF) [Protonix TAB (NF)] 40 mg PO DAILY #14 tab Patient Education Materials: Acute Abdominal Pain (ED), Abdominal Pain (ED), Epigastric Pain (ED) Referrals: Anshul Vegas MD [Medical Doctor] - 3 Days Cali Mathews MD [Primary Care Provider] - 7 Days The documentation as recorded by the Erma calderon Alfonso accurately reflects the service I personally performed and the decisions made by me, Sree Jacobs MD.
== END 2016-12-16 19:53 | disposition home or self-care (01) ==
LOC: ED 16:17
DX: R10.13 Epigastric pain (principal); F17.210 Nicotine dependence, cigarettes, uncomplicated
CPT/HCPCS: 36415; 76705; 80053; 82150; 83605; 83690; 83735; 84484; 85025; 86140; 93005; 96360; 96374; 96375; 96376; 99282; A9270-GY; J2405; J3010

== ENCOUNTER 2017-02-24 14:15 | Observation (INO) | payer BC ==
[2017-02-24] MEDS ORDERED: Ondansetron INJ* 2 MG/ML VIAL IV ONE ×2 (15:08→21:00)
[2017-02-24] MEDS ORDERED: NS 0.9% 1000 ML* 1,000 ML IV ONE (15:08)
[2017-02-24] MEDS ORDERED: Pantoprazole IV* 40 MG IV ONE (15:08)
[2017-02-24 16:12] LABS: Hematocrit 46 % (42-52); Hemoglobin 15.7 g/dl (14.0-18.0); Mean Corpuscular HGB Conc 34 g/dl (31-36); Mean Corpuscular Hemoglobin 32 pg (27-31); Mean Corpuscular Volume 93 fL (80-94); Mean Platelet Volume 8 um3 (7.4-10.4); Red Blood Count 4.98 10^6/ul (4.0-5.4); Red Cell Distribution Width 13 % (10.5-15); White Blood Count 10.9 10^3/ul (3.5-10.8)
[2017-02-24 16:26] LABS: Albumin 4.7 g/dL (3.2-5.2); BUN/Creatinine Ratio 17.1 (8-20); C Reactive Protein 2.88 mg/L (< 5.00); Calcium 9.9 mg/dL (8.6-10.3); EGFR African American 126.9 (>60); EGFR Non-African American 98.7 (>60); Globulin 3.2 g/dL (2-4); Magnesium 1.8 mg/dL (1.9-2.7); Potassium 3.8 mmol/L (3.5-5.0); Total Bilirubin 0.7 mg/dL (0.2-1.0); Total Protein 7.9 g/dL (6.4-8.9)
[2017-02-24] MEDS ORDERED: Metoclopramide IV* 5 MG/ML 2 ML VIAL IV ONE ×2 (17:15→18:45)
[2017-02-24] MEDS ORDERED: Morphine INJ* 4 MG/ML 1 ML CARPUJECT IV ONE (17:49)
[2017-02-24] MEDS ORDERED: fentaNYL* 50 MCG/ML 2 ML VIAL (100 MCG VIAL) IV SLOW PU ONE (18:45)
[2017-02-24] MEDS: Magnesium Oxide TAB* 400 MG PO ONE (19:20)
--- NOTE | 2017-02-24 19:21 | RAD ---
INDICATION: Abdominal pain. COMPARISON: Comparison is made with a prior CT of the abdomen and pelvis from November 17, 2016. TECHNIQUE: Supine and decubitus views of the abdomen were obtained. FINDINGS: The small bowel and colon appear nondistended. No free intraperitoneal air is seen. IMPRESSION: NO EVIDENCE FOR ACUTE FINDING.
[2017-02-24 20:08] LABS: Urine Bacteria Absent (Absent); Urine Bilirubin Negative (Negative); Urine Glucose 1+(50 mg/dL) (Negative); Urine Nitrite Negative (Negative)
[2017-02-24 20:26] LABS: Benzodiazepine Urine Screen None Detected (None Detect)
[2017-02-24] MEDS ORDERED: NS 0.9% 1000 ML* 1,000 ML IV SCH (20:45)
[2017-02-24] MEDS ORDERED: Acetaminophen TAB* 325 MG PO PRN (20:46)
[2017-02-24] MEDS ORDERED: Albuterol 2.5 MG/3 ML NEB.SOL* (0.083%) INH PRN (20:46)
[2017-02-24] MEDS ORDERED: CMCS: Melatonin (NF) 3 MG TAB PO PRN (20:47)
[2017-02-24] MEDS ORDERED: Ondansetron INJ* 2 MG/ML VIAL IV PRN (20:47)
[2017-02-24] MEDS ORDERED: PROCHLORPERAZINE INJ 5 MG/ML 2 ML VIAL IV PRN (20:47)
[2017-02-24] MEDS ORDERED: Nicotine Inhaler* 10 MG AMP INH PRN (20:47)
[2017-02-24] MEDS ORDERED: oxyCODONE TAB* 5 MG TAB PO ONE (21:00)
[2017-02-24] MEDS: Docusate CAP* 100 MG PO SCH (22:05)
[2017-02-24] MEDS: HYDROmorphone INJ* 1 MG/ML CARPUJECT SYRINGE IV PRN (23:22)
[2017-02-25] MEDS: Cyclobenzaprine TAB* 10 MG PO PRN (03:44)
[2017-02-25] MEDS: HYDROmorphone INJ* 1 MG/ML CARPUJECT SYRINGE IV PRN ×6 (03:46→19:49)
--- NOTE | 2017-02-25 03:56 | HP ---
H&P (Free Text) History and Physical: PCP: Peter Mathews MD GI: Peter Case MD Date/Time: 02/24/20172044 CC: abdominal pain HPI: Mr Adame is a 51YO male HX gastric ulcers presenting reporting onset of abdominal pain 02/23 upon awakening, did not awaken. Describes it as a dull fire associated with too numerous to count emesis, subjective F/C, sweats, but no change in bowel/bladder, chest pain, SOB, cough, congestion, or other issues. He had similar issues in October/November of this year. Last saw Dr Case ~2 years ago. PMedHx gastric ulcers ruptured lumbar disc pre-DM2 Ambulatory Orders Atorvastatin* [Lipitor*] 10 mg PO DAILY 02/04/17 Gabapentin CAP(*) [Neurontin 300 CAP(*)] 300 mg PO TID 02/04/17 Hydrocodone-Acetaminophen [Hydrocodone/Acetaminophen 10-325 mg] 1 tab PO Q6HR PRN MDD 3 tabs 02/04/17 Omeprazole CAP* [Prilosec CAP* 20 MG] 20 mg PO DAILY 02/04/17 metFORMIN* [Glucophage 500 MG TAB *] 500 mg PO BEDTIME 02/04/17 oxyCODONE/Acetamin 10/325(NF) [Percocet 10/325 (NF)] 1 tab PO DAILY PRN Cyclobenzaprine TAB* [Flexeril 10 MG TAB*] 10 mg PO TID PRN MDD 2 02/24/17 Allergies No Known Allergies Allergy (Verified 02/04/17 15:14) PSurgHx appendectomy SocHx: 1PPD cigarettes, minimal alcohol, denies recreational drugs; lives with his ; works as a contractor; full code status FamHx: positive for DM2 ROS: as above, otherwise reviewed and all were negative vitals: Vital Signs Temp 36.9 C 02/25/17 03:05 Pulse 99 02/25/17 03:05 Resp 20 02/25/17 03:05 BP 153/82 02/25/17 03:05 Pulse Ox 99 02/24/17 21:21 Intake & Output 02/24/17 02/24/17 02/25/17 11:59 23:59 11:59 Intake Total 10 Balance 10 Weight 91.399 kg Intake: IV Fluids 10 Other: # Voids 0 Constitutional: NAD, normally developed, overweight white male HEENM: atraumatic; sclera/conjunctiva: non-icteric/mildly injected; hearing: clinically intact; oropharynx: clear, mucosa moist Neck: soft tissue: non-tender; thyroid: normal Pulmonary: clear to auscultation bilaterally, good aeration, no accessory muscle use CV: RR/RR, normal S1S2, no carotid bruit, no jugular venous distention, 2+ B DP/ PT, no edema Abdominal: soft, non-distended, moderate high epigastric point tenderness with voluntary guarding but no rebound/rigidity, normoactive bowel sounds, no hepatosplenomegaly or masses, no costovertebral angle tenderness Musculoskeletal: general: grossly intact, no palpable tenderness Integumental: normal appearance and texture of exposed skin Psychiatric orientation: AA&O to PPS affect: calm mood: cooperative eye contact: fair content: reliable responses: timely insight: fair Testing: Lab Results 02/24/17 02/24/17 02/24/17 Range/Units 15:45 15:45 15:45 WBC 10.9 H (3.5-10.8) 10^3/ul RBC 4.98 (4.0-5.4) 10^6/ul Hgb 15.7 (14.0-18.0) g/dl Hct 46 (42-52) % MCV 93 (80-94) fL MCH 32 H (27-31) pg MCHC 34 (31-36) g/dl RDW 13 (10.5-15) % Plt Count 315 (150-450) 10^3/ul MPV 8 (7.4-10.4) um3 Neut % (Auto) 80.8 (38-83) % Lymph % (Auto) 15.1 L (25-47) % Hickman % (Auto) 3.6 (1-9) % Eos % (Auto) 0.1 (0-6) % Baso % (Auto) 0.4 (0-2) % Absolute Neuts (auto) 8.8 H (1.5-7.7) 10^3/ul Absolute Lymphs (auto) 1.6 (1.0-4.8) 10^3/ul Absolute Monos (auto) 0.4 (0-0.8) 10^3/ul Absolute Eos (auto) 0 (0-0.6) 10^3/ul Absolute Basos (auto) 0 (0-0.2) 10^3/ul Absolute Nucleated RBC 0 10^3/ul Nucleated RBC % 0 Sodium 137 (133-145) mmol/L Potassium 3.8 (3.5-5.0) mmol/L Chloride 102 (101-111) mmol/L Carbon Dioxide 24 (22-32) mmol/L Anion Gap 11 (2-11) mmol/L BUN 14 (6-24) mg/dL Creatinine 0.82 (0.67-1.17) mg/dL Est GFR ( Amer) 126.9 (>60) Est GFR (Non-Af Amer) 98.7 (>60) BUN/Creatinine Ratio 17.1 (8-20) Glucose 186 H (70-100) mg/dL Calcium 9.9 (8.6-10.3) mg/dL Magnesium 1.8 L (1.9-2.7) mg/dL Total Bilirubin 0.70 (0.2-1.0) mg/dL AST 21 (13-39) U/L ALT 33 (7-52) U/L Alkaline Phosphatase 62 (34-104) U/L Ammonia 36 (16-53) mol/L Troponin I 0.00 (<0.04) ng/mL C-Reactive Protein 2.88 (< 5.00) mg/L Total Protein 7.9 (6.4-8.9) g/dL Albumin 4.7 (3.2-5.2) g/dL Globulin 3.2 (2-4) g/dL Albumin/Globulin Ratio 1.5 (1-3) Amylase 43 (29-103) U/L Lipase 18 (11.0-82.0) U/L Urine Color Urine Appearance Urine pH (5-9) Ur Specific [place] (1.010-1.030) Urine Protein (Negative) Urine Ketones (Negative) Urine Blood (Negative) Urine Nitrate (Negative) Urine Bilirubin (Negative) Urine Urobilinogen (Negative) Ur Leukocyte Esterase (Negative) Urine WBC (Auto) (Absent) Urine RBC (Auto) (Absent) Urine Bacteria (Absent) Urine Glucose (Negative) Urine Opiates Screen (None Detect) Ur Barbiturates Screen (None Detect) Ur Phencyclidine Scrn (None Detect) Ur Amphetamines Screen (None Detect) U Benzodiazepines Scrn (None Detect) Urine Cocaine Screen (None Detect) U Cannabinoids Screen (None Detect) 02/24/17 02/24/17 Range/Units 19:49 19:49 WBC (3.5-10.8) 10^3/ul RBC (4.0-5.4) 10^6/ul Hgb (14.0-18.0) g/dl Hct (42-52) % MCV (80-94) fL MCH (27-31) pg MCHC (31-36) g/dl RDW (10.5-15) % Plt Count (150-450) 10^3/ul MPV (7.4-10.4) um3 Neut % (Auto) (38-83) % Lymph % (Auto) (25-47) % Hickman % (Auto) (1-9) % Eos % (Auto) (0-6) % Baso % (Auto) (0-2) % Absolute Neuts (auto) (1.5-7.7) 10^3/ul Absolute Lymphs (auto) (1.0-4.8) 10^3/ul Absolute Monos (auto) (0-0.8) 10^3/ul Absolute Eos (auto) (0-0.6) 10^3/ul Absolute Basos (auto) (0-0.2) 10^3/ul Absolute Nucleated RBC 10^3/ul Nucleated RBC % Sodium (133-145) mmol/L Potassium (3.5-5.0) mmol/L Chloride (101-111) mmol/L Carbon Dioxide (22-32) mmol/L Anion Gap (2-11) mmol/L BUN (6-24) mg/dL Creatinine (0.67-1.17) mg/dL Est GFR ( Amer) (>60) Est GFR (Non-Af Amer) (>60) BUN/Creatinine Ratio (8-20) Glucose (70-100) mg/dL Calcium (8.6-10.3) mg/dL Magnesium (1.9-2.7) mg/dL Total Bilirubin (0.2-1.0) mg/dL AST (13-39) U/L ALT (7-52) U/L Alkaline Phosphatase (34-104) U/L Ammonia (16-53) mol/L Troponin I (<0.04) ng/mL C-Reactive Protein (< 5.00) mg/L Total Protein (6.4-8.9) g/dL Albumin (3.2-5.2) g/dL Globulin (2-4) g/dL Albumin/Globulin Ratio (1-3) Amylase (29-103) U/L Lipase (11.0-82.0) U/L Urine Color Yellow Urine Appearance Clear Urine pH 6.0 (5-9) Ur Specific [place] 1.030 (1.010-1.030) Urine Protein 1+(30 mg/dl) H (Negative) Urine Ketones 2+ H (Negative) Urine Blood Negative (Negative) Urine Nitrate Negative (Negative) Urine Bilirubin Negative (Negative) Urine Urobilinogen Negative (Negative) Ur Leukocyte Esterase Negative (Negative) Urine WBC (Auto) Trace(0-5/hpf) (Absent) Urine RBC (Auto) 2+(6-10/hpf) H (Absent) Urine Bacteria Absent (Absent) Urine Glucose 1+(50 mg/dl) H (Negative) Urine Opiates Screen Presumptive positive H (None Detect) Ur Barbiturates Screen None detected (None Detect) Ur Phencyclidine Scrn None detected (None Detect) Ur Amphetamines Screen None detected (None Detect) U Benzodiazepines Scrn None detected (None Detect) Urine Cocaine Screen None detected (None Detect) U Cannabinoids Screen None detected (None Detect) ECG, personally reviewed: NSR rate 83, no ischemia XRY 2v abdomen, personally reviewed: IMPRESSION: NO EVIDENCE FOR ACUTE FINDING. Impression: 51M HX gastric ulcers presenting with intractable epigastric pain and intractable N/V DIAGNOSIS & PLAN Primary intractable epigastric pain and intractable N/V : HX gastric ulcers : omeprazole : carafate : clear liquid diet : pain control : consider GI consult in AM if no improvement : supportive care Secondary pre-DM2 : check A1c : consistent carb diet : continue metformin Admission Rational: observation for intractable N/V & abdominal pain of uncertain etiology DVTp: CELIA Code Status: full HCP:
[2017-02-25] MEDS: NS 0.9% 1000 ML* 1,000 ML IV SCH ×3 (04:53→21:13)
[2017-02-25] MEDS ORDERED: Omeprazole CAP* 20 MG PO SCH (06:00)
[2017-02-25 06:09] LABS: Hematocrit 42 % (42-52); Mean Corpuscular HGB Conc 34 g/dl (31-36); Mean Corpuscular Hemoglobin 31 pg (27-31); Mean Corpuscular Volume 93 fL (80-94); Mean Platelet Volume 8 um3 (7.4-10.4); Red Blood Count 4.47 10^6/ul (4.0-5.4); Red Cell Distribution Width 13 % (10.5-15); White Blood Count 14.3 10^3/ul (3.5-10.8)
[2017-02-25 06:20] LABS: Calcium 8.7 mg/dL (8.6-10.3); EGFR African American 140.6 (>60); EGFR Non-African American 109.4 (>60); Potassium 3.5 mmol/L (3.5-5.0)
[2017-02-25] MEDS: Omeprazole CAP* 20 MG PO SCH (08:04)
[2017-02-25] MEDS: Gabapentin CAP(*) 300 MG PO SCH ×3 (08:04→19:52)
[2017-02-25] MEDS: Atorvastatin* 10 MG TAB PO SCH (08:04)
[2017-02-25] MEDS: Sucralfate TAB* 1 GM PO SCH ×3 (08:04→16:29)
[2017-02-25] MEDS: Docusate CAP* 100 MG PO SCH ×2 (08:05→19:50)
--- NOTE | 2017-02-25 17:18 | PN ---
Subjective Date of Service: 02/25/17 Interval History: Patient seen and examined at bedside. Pt states that his epigastric pain, N/V are improving. Denies fever, shortness of breath, chest discomfort, N/V/D. He reports chills last night. Pt is requesting to have an EGD if possible while here. He reports that he is hungry and is requesting more to eat. He denies recent NSAID use and states that he no longer uses NASAIDS since his last ulcer. Pt was specifically questioned about ibuprofen, Motrin, Alleve, Advil and Excedrin. Pt states that he has been taking his omeprazole regularly since he last had "issues" in October or November when he had stopped taking it. Family History: Unchanged from Admission Social History: Unchanged from Admission Past Medical History: Unchanged from Admission Objective Active Medications: Acetaminophen (Tylenol Tab*) 650 mg PO Q6H PRN Reason: FEVER/PAIN Albuterol (Ventolin 2.5 Mg/3 Ml Neb.Elvi*) 2.5 mg INH Q2H PRN Reason: SOB/ WHEEZING Atorvastatin Calcium (Lipitor*) 10 mg PO DAILY KAY Cyclobenzaprine HCl (Flexeril Tab*) 10 mg PO TID PRN Reason: SPASMS - MUSCLE Docusate Sodium (Colace Cap*) 200 mg PO BID KAY Gabapentin (Neurontin Cap(*)) 300 mg PO TID KAY Hydromorphone HCl (Dilaudid Inj*) 0.5 mg IV Q2H PRN Reason: PAIN Sodium Chloride (Ns 0.9% 1000 Ml*) 1,000 mls @ 125 mls/hr IV PER RATE [facility] Melatonin (Melatonin (Nf)) 3 mg PO BEDTIME PRN; Protocol Reason: Sleep Metformin HCl (Glucophage*) 500 mg PO BEDTIME KAY Nicotine (Nicotine Inhaler*) 10 mg INH Q2H PRN Reason: CRAVING Omeprazole (Prilosec Cap*) 20 mg PO DAILY@0730 [facility] Ondansetron HCl (Zofran Inj*) 4 mg IV Q6H PRN Reason: NAUSEA Prochlorperazine Edisylate (Compazine Inj*) 10 mg IV Q6H PRN Reason: NAUSEA Sucralfate (Carafate*) 1 gm PO AC [facility] Vital Signs 09/28/17 09/28/17 09/28/17 19:20 19:29 19:56 Temperature Pulse Rate 94 Respiratory 18 Rate Blood Pressure 159/87 (mmHg) O2 Sat by Pulse 97 Oximetry 02/24/17 02/24/17 02/24/17 21:00 21:10 21:21 Temperature 99.8 F 99.8 F Pulse Rate 92 99 Respiratory 22 22 Rate Blood Pressure 145/62 145/62 (mmHg) O2 Sat by Pulse 100 99 Oximetry 02/25/17 02/25/17 02/25/17 00:04 00:22 03:05 Temperature 98.8 F 98.5 F Pulse Rate 84 99 Respiratory 20 18 20 Rate Blood Pressure 143/78 153/82 (mmHg) O2 Sat by Pulse 96 Oximetry 02/25/17 02/25/17 02/25/17 03:12 03:44 03:46 Temperature 98.5 F Pulse Rate 99 Respiratory 20 20 20 Rate Blood Pressure 153/82 (mmHg) O2 Sat by Pulse 98 Oximetry 02/25/17 02/25/17 02/25/17 04:46 05:44 07:58 Temperature 98.4 F Pulse Rate 102 Respiratory 20 20 16 Rate Blood Pressure 148/83 (mmHg) O2 Sat by Pulse 97 Oximetry 02/25/17 02/25/17 02/25/17 08:02 08:04 08:05 Temperature 98.4 F Pulse Rate 102 Respiratory 16 18 18 Rate Blood Pressure 148/83 (mmHg) O2 Sat by Pulse 97 Oximetry 02/25/17 02/25/17 02/25/17 11:20 11:23 12:26 Temperature 98.1 F 98.1 F Pulse Rate 66 66 Respiratory 18 18 18 Rate Blood Pressure 117/66 117/66 (mmHg) O2 Sat by Pulse 97 97 Oximetry 02/25/17 02/25/17 02/25/17 13:26 15:17 16:29 Temperature 98.1 F Pulse Rate 87 Respiratory 18 16 18 Rate Blood Pressure 124/80 (mmHg) O2 Sat by Pulse 98 Oximetry Oxygen Devices in Use Now: None Appearance: NAD, laying in bed Ears/Nose/Mouth/Throat: Mucous Membranes Moist Respiratory: Symmetrical Chest Expansion and Respiratory Effort, Clear to Auscultation Cardiovascular: NL Sounds; No Murmurs; No JVD, RRR Abdominal: NL Sounds; No Tenderness; No Distention Extremities: No Edema Skin: No Rash or Ulcers Neurological: Alert and Oriented x 3, NL Muscle Strength and Tone Lines/Tubes/Other Access: Clean, Dry and Intact Peripheral IV - site benign Nutrition: Taking PO's Result Diagrams: 02/25/17 05:29 02/25/17 05:28 Assess/Plan/Problems-Billing Assessment: Mr. Adame is a 51 yo male with PMH significant for gastric ulcers and pre-DM who presented to the emergency room with complaints of sudden onset of epigastric/abdominal pain. - Patient Problems (1) Epigastric pain Code(s): R10.13 - EPIGASTRIC PAIN SNOMED Code(s): 19341970 Comment: - ? secondary to new gastric ulcers - Tolerating clear liquids - Reports that pain and N/V are improving - Continue omeprazole and carafate - Will advance to full liquids diet - Consider GI consult if worsening, if not f/u GI outpatient (2) Gastric ulcer Code(s): K25.9 - GASTRIC ULCER, UNSP ACUTE OR CHRONIC, W/O HEMOR OR PERF SNOMED Code(s): 753303233 Comment: - Hx secondary to NSAID use - Continue omeprazole and carafate (3) Pre-diabetes Code(s): R73.03 - PREDIABETES SNOMED Code(s): 809244645 Comment: - HgA1C 7.7 - Consitent carb diet once taking POs - Conitnue metformin (4) DVT prophylaxis Code(s): CNK4999 - SNOMED Code(s): 029770186 Comment: - TEDs (5) Patient is full code Code(s): Z78.9 - OTHER SPECIFIED HEALTH STATUS SNOMED Code(s): 611396428 Status and Disposition: OBV. Discharge to home when medically stable, possibly in the AM.
--- NOTE | 2017-02-25 18:17 | ED ---
Stewart Nicole Angela, scribed for Sree Jacobs MD on 02/24/17 at 1506 . Abdominal Pain/Male - HPI Summary HPI Summary: This pt is a 51 y/o male presenting to [facility] c/o abdominal pain, nausea, and vomiting since yesterday. Pt reports his GI doctor is Dr. Case, last time the pt saw him was 2 years ago. He additionally c/o chills. Pt denies fever, SOB , chest pain. He states having PMHx of 6 gastric ulcers. PSHx of appendectomy. - History of Current Complaint Chief Complaint: EDAbdPain Stated Complaint: STOMACH PAIN/VOMITING Hx Obtained From: Patient Onset/Duration: Lasting Days - 1 Timing: Lasting Days - 1 Pain Intensity: 7 Pain Scale Used: 0-10 Numeric Location: Diffuse Radiates: No Aggravating Factor(s): Nothing Alleviating Factor(s): Nothing Associated Signs And Symptoms: Positive: Nausea, Vomiting. Negative: Chest Pain , Back Pain, Diarrhea - Allergies/Home Medications Allergies/Adverse Reactions: Allergies Allergy/AdvReac Type Severity Reaction Status Date / Time No Known Allergies Allergy Verified 02/04/17 15:14 Home Medications: Home Medications Cyclobenzaprine TAB* [Flexeril 10 MG TAB*] 10 mg PO TID PRN MDD 2 02/24/17 [ History Confirmed 02/24/17] PMH/Surg Hx/FS Hx/Imm Hx Endocrine/Hematology History: Reports: Hx Diabetes - CONTROLLED BY DIET and metformin Denies: Hx Anticoagulant Therapy, Hx Blood Disorders, Hx Bone Marrow Disease , Hx Sickle Cell Disease, Hx Anemia Cardiovascular History: Reports: Hx Hypercholesterolemia Denies: Hx Congestive Heart Failure, Hx Hypertension, Hx Pacemaker/ICD Respiratory History: Denies: Hx Asthma GI History: Reports: Hx Ulcer Denies: Hx Cirrhosis, Hx Crohn's Disease, Hx Diverticulosis, Hx Gall Bladder Disease, Hx Gastroesophageal Reflux Disease History: Denies: Hx Kidney Stones, Hx Renal Disease Musculoskeletal History: Reports: Hx Back Problems Sensory History: Denies: Hx Cataracts, Hx Contacts or Glasses, Hx Eye Injury, Hx Eye Prosthesis, Hx Hearing Aid Opthamlomology History: Denies: Hx Cataracts, Hx Contacts or Glasses, Hx Eye Injury, Hx Eye Prosthesis Psychiatric History: Denies: Hx Panic Disorder - Cancer History Hx Radiation Therapy: No Hx Palliative Cancer Treatment: No - Surgical History Surgery Procedure, Year, and Place: APPENDECTOMY;. COLONOSCOPY/ENDOSCOPY Hx Anesthesia Reactions: No - Immunization History Date of Tetanus Vaccine: Unk Date of Influenza Vaccine: None Infectious Disease History: Yes Infectious Disease History: Denies: Hx of Known/Suspected MRSA, History Other Infectious Disease, Traveled Outside the [place] in Last 30 Days - Family History Known Family History: Negative: Cardiac Disease, Hypertension - Social History Alcohol Use: Occasionally Alcohol Amount: 3-4x times a wk Hx Substance Use: No Substance Use Type: Reports: None Hx Tobacco Use: Yes Smoking Status (MU): Current Every Day Smoker Type: Cigarettes Amount Used/How Often: 1 ppd Length of Time of Smoking/Using Tobacco: 30+ years Have You Smoked in the Last Year: Yes Review of Systems Positive: Chills. Negative: Fever Eyes: Negative Negative: Chest Pain Negative: Shortness Of Breath Positive: Abdominal Pain, Vomiting, Nausea. Negative: Diarrhea Genitourinary: Negative Musculoskeletal: Negative Skin: Negative All Other Systems Reviewed And Are Negative: Yes Physical Exam - Summary Physical Exam Summary: VITAL SIGNS: Reviewed. GENERAL: Patient is a well-developed and nourished male. Patient is not in any acute respiratory distress. Pt is diaphoretic. HEAD AND FACE: Normocephalic and atraumatic. EYES: PERRLA, EOMI x 2, No injected conjunctiva. EARS: Hearing grossly intact. Ear canals and tympanic membranes are WNL. MOUTH: Oropharynx within normal limits. NECK: Supple, trachea is midline, no adenopathy, no JVD. CHEST: Symmetric, no tenderness at palpation LUNGS: Clear to auscultation bilaterally. No wheezing or crackles. CVS: RRR, S1 and S2 present, no murmurs or gallops appreciated. ABDOMEN: Soft. Pt has epigastric tenderness. No signs of distention. Positive bowel sounds. No rebound no guarding, and no masses palpated. No abdominal bruit or pulsations. EXTREMITIES: FROM in all major joints, no edema, no cyanosis or clubbing. NEURO: Alert and oriented x 3. No acute neurological deficits. Speech is normal. SKIN: diaphoretic and warm Triage Information Reviewed: Yes Vital Signs On Initial Exam: Initial Vitals Temp Pulse Resp BP Pulse Ox 97.9 F 88 20 171/87 99 02/24/17 14:26 02/24/17 14:26 02/24/17 14:26 02/24/17 14:26 02/24/17 14:26 Vital Signs Reviewed: Yes Diagnostics - Vital Signs Vital Signs Temp Pulse Resp BP Pulse Ox 02/24/17 14:26 97.9 F 88 20 171/87 99 - Laboratory Result Diagrams: 02/24/17 15:45 02/24/17 15:45 Lab Statement: Any lab studies that have been ordered have been reviewed, and results considered in the medical decision making process. - Radiology Abd XR Radiology Interpretation Completed By: Radiologist - Pending official interpretation from radiologist. See [facility]. - EKG 1444 Cardiac Rate: NL - 83 bpm EKG Rhythm: Sinus Rhythm EKG Interpretation: No ST elevation. Normal axis Abdominal Pain Fem Course/Dx - Course Assessment/Plan: This pt is a 51 y/o male presenting to [facility] c/o abdominal pain , nausea, and vomiting since yesterday. Pt reports his GI doctor is Dr. Case , last time the pt saw him was 2 years ago. He additionally c/o chills. Pt denies fever, SOB, chest pain. He states having PMHx of 6 gastric ulcers. PSHx of appendectomy. Test result without significant abnormalities except for WBC of 10.9, magnesium of 1.8. Abdomen XR shows no acute pathology. In the ED course , the pt was given IV fluids, Zofran, protonix for epigastric pain, and morphine for the pain as well. The pt continued to have nausea and vomiting so another dose of Zofran and reglan was administered, as well as fentanyl for the pain. Pt is still nauseous and with pain. I discussed the case with Ms. Bobby , who discussed with Dr. Bagley, and accepted the pt for admission. - Diagnoses Provider Diagnoses: Nausea and vomiting, Epigastric pain - Provider Notifications Discussed Care Of Patient With: Richard Bobby Instructed by Provider To: Other - I discussed the pt's case with Ms. Bobby, who spoke with Dr. Bagley, and accepted the pt for admission. Discharge - Discharge Plan Condition: Stable Disposition: ADMITTED TO [facility] Referrals: Cali Mathews MD [Primary Care Provider] - The documentation as recorded by the Stewart calderon Angela accurately reflects the service I personally performed and the decisions made by me, Sree Jacobs MD.
[2017-02-25] MEDS ORDERED: metFORMIN* 500 MG TAB PO SCH (21:00)
[2017-02-26] MEDS: Cyclobenzaprine TAB* 10 MG PO PRN ×2 (01:27→09:12)
[2017-02-26] MEDS: HYDROmorphone INJ* 1 MG/ML CARPUJECT SYRINGE IV PRN ×2 (01:27→04:40)
[2017-02-26] MEDS: NS 0.9% 1000 ML* 1,000 ML IV SCH (04:46)
[2017-02-26 07:05] LABS: Hematocrit 38 % (42-52); Hemoglobin 13.1 g/dl (14.0-18.0); Mean Corpuscular HGB Conc 34 g/dl (31-36); Mean Corpuscular Hemoglobin 32 pg (27-31); Mean Corpuscular Volume 93 fL (80-94); Mean Platelet Volume 8 um3 (7.4-10.4); Red Blood Count 4.13 10^6/ul (4.0-5.4); Red Cell Distribution Width 13 % (10.5-15); White Blood Count 8.3 10^3/ul (3.5-10.8)
[2017-02-26] MEDS: Sucralfate TAB* 1 GM PO SCH ×2 (07:46→12:05)
[2017-02-26] MEDS: Omeprazole CAP* 20 MG PO SCH (07:46)
[2017-02-26] MEDS: Atorvastatin* 10 MG TAB PO SCH (09:08)
[2017-02-26] MEDS: Docusate CAP* 100 MG PO SCH (09:08)
[2017-02-26] MEDS: Gabapentin CAP(*) 300 MG PO SCH (09:09)
--- NOTE | 2017-02-26 10:55 | PN ---
Subjective Date of Service: 02/26/17 Interval History: Pt is feeling well. He states his epigastric pain is essentially gone. He has not vomited since early yesterday AM. He wants regular food. He is feeling ready to go home. Family History: Unchanged from Admission Social History: Unchanged from Admission Past Medical History: Unchanged from Admission Objective Active Medications: Acetaminophen (Tylenol Tab*) 650 mg PO Q6H PRN PRN Reason: FEVER/PAIN Last Admin: 02/26/17 07:51 Dose: 650 mg Albuterol (Ventolin 2.5 Mg/3 Ml Neb.Elvi*) 2.5 mg INH Q2H PRN PRN Reason: SOB/WHEEZING Atorvastatin Calcium (Lipitor*) 10 mg PO DAILY [facility] Last Admin: 02/26/17 09:08 Dose: 10 mg Cyclobenzaprine HCl (Flexeril Tab*) 10 mg PO TID PRN PRN Reason: SPASMS - MUSCLE Last Admin: 02/26/17 09:12 Dose: 10 mg Docusate Sodium (Colace Cap*) 200 mg PO BID [facility] Last Admin: 02/26/17 09:08 Dose: 200 mg Gabapentin (Neurontin Cap(*)) 300 mg PO TID [facility] Last Admin: 02/26/17 09:09 Dose: 300 mg Hydromorphone HCl (Dilaudid Inj*) 0.5 mg IV Q2H PRN PRN Reason: PAIN Last Admin: 02/26/17 04:40 Dose: 0.5 mg Sodium Chloride (Ns 0.9% 1000 Ml*) 1,000 mls @ 125 mls/hr IV PER RATE [facility] Last Admin: 02/26/17 04:46 Dose: 125 mls/hr Melatonin (Melatonin (Nf)) 3 mg PO BEDTIME PRN; Protocol PRN Reason: Sleep Metformin HCl (Glucophage*) 500 mg PO BID [facility] Nicotine (Nicotine Inhaler*) 10 mg INH Q2H PRN PRN Reason: CRAVING Omeprazole (Prilosec Cap*) 20 mg PO DAILY@30 [facility] Last Admin: 02/26/17 07:46 Dose: 20 mg Ondansetron HCl (Zofran Inj*) 4 mg IV Q6H PRN PRN Reason: NAUSEA Last Admin: 02/25/17 08:05 Dose: 4 mg Prochlorperazine Edisylate (Compazine Inj*) 10 mg IV Q6H PRN PRN Reason: NAUSEA Sucralfate (Carafate*) 1 gm PO AC KAY Last Admin: 02/26/17 07:46 Dose: 1 gm Vital Signs 02/25/17 02/25/17 02/25/17 10:59 11:20 11:23 Temperature 98.1 F 98.1 F Pulse Rate 66 66 Respiratory 18 18 18 Rate Blood Pressure 117/66 117/66 (mmHg) O2 Sat by Pulse 97 97 Oximetry 02/25/17 02/25/17 02/25/17 12:26 13:26 15:17 Temperature 98.1 F Pulse Rate 87 Respiratory 18 18 16 Rate Blood Pressure 124/80 (mmHg) O2 Sat by Pulse 98 Oximetry 02/25/17 02/25/17 02/25/17 16:29 17:29 19:24 Temperature 98.1 F Pulse Rate 95 Respiratory 18 18 16 Rate Blood Pressure 129/67 (mmHg) O2 Sat by Pulse 96 Oximetry 02/25/17 02/25/17 02/25/17 19:49 19:52 20:00 Temperature Pulse Rate Respiratory 20 20 20 Rate Blood Pressure (mmHg) O2 Sat by Pulse Oximetry 02/25/17 02/25/17 02/25/17 20:49 21:52 23:17 Temperature 97.9 F Pulse Rate 93 Respiratory 18 20 16 Rate Blood Pressure 118/80 (mmHg) O2 Sat by Pulse 95 Oximetry 02/26/17 02/26/17 02/26/17 01:27 02:27 03:27 Temperature Pulse Rate Respiratory 20 16 20 Rate Blood Pressure (mmHg) O2 Sat by Pulse Oximetry 02/26/17 02/26/17 02/26/17 04:40 05:08 07:32 Temperature 97.5 F 98.0 F Pulse Rate 81 74 Respiratory 20 16 18 Rate Blood Pressure 125/75 105/73 (mmHg) O2 Sat by Pulse 96 99 Oximetry 02/26/17 02/26/17 09:09 09:12 Temperature Pulse Rate Respiratory 18 16 Rate Blood Pressure (mmHg) O2 Sat by Pulse Oximetry Oxygen Devices in Use Now: None Appearance: Middle aged male sitting up in bed, NAD Eyes: No Scleral Icterus Ears/Nose/Mouth/Throat: Mucous Membranes Moist Respiratory: Symmetrical Chest Expansion and Respiratory Effort, Clear to Auscultation - few RLL crackles Cardiovascular: NL Sounds; No Murmurs; No JVD, RRR, No Edema Abdominal: NL Sounds; No Tenderness; No Distention Extremities: No Clubbing, Cyanosis Skin: No Rash or Ulcers, No Nodules or Sclerosis Neurological: Alert and Oriented x 3 Result Diagrams: 02/26/17 06:26 02/25/17 05:28 Assess/Plan/Problems-Billing Mr. Adame is a 51 yo male with PMHx significant for gastric ulcers and pre- DM who presented to the emergency room with complaints of sudden onset of epigastric/abdominal pain. - Patient Problems (1) Epigastric pain Current Visit: Yes Status: Acute Code(s): R10.13 - EPIGASTRIC PAIN SNOMED Code(s): 14979350 Comment: Unclear etiology but improved through this hospitalization without any significant intervention. Advance to regular diet. If he tolerates regular food will d/c home. Pt states he will follow up with the GI office as an outpatient. (2) Pre-diabetes Current Visit: Yes Status: Chronic Code(s): R73.03 - PREDIABETES SNOMED Code(s): 069637366 Comment: Pt now categorized as diabetic given his elevated A1c. Increase metformin to 500mg BID. (3) DVT prophylaxis Current Visit: Yes Status: Acute Code(s): CUE8434 - SNOMED Code(s): 299627501 Comment: ambulation (4) Patient is full code Current Visit: Yes Status: Acute Onset Date: 02/08/15 Code(s): Z78.9 - OTHER SPECIFIED HEALTH STATUS SNOMED Code(s): 751260625 Status and Disposition: d/c home if tolerates regular food
[2017-02-26 13:07] VITALS: BP 143/83
[2017-02-26] MEDS ORDERED: metFORMIN* 500 MG TAB PO SCH (21:00)
--- NOTE | 2017-02-27 02:06 | DS ---
CC: Dr. Mathews * DISCHARGE SUMMARY: DATE OF ADMISSION: 02/24/17 DATE OF DISCHARGE: 02/26/17 PRIMARY CARE PROVIDER: Dr. Mathews. PRINCIPAL DIAGNOSIS: Epigastric pain and nausea and vomiting of unclear etiology. SECONDARY DIAGNOSIS: Type 2 diabetes. DISCHARGE MEDICATIONS: 1. Cyclobenzaprine 10 mg p.o. t.i.d. p.r.n. spasm. 2. Lipitor 10 mg daily. 3. Gabapentin 300 mg p.o. t.i.d. 4. [place] 10/325 one tab p.o. q.6 hours p.r.n. pain. 5. Percocet 10/325 one tab p.o. daily p.r.n. pain. 6. Omeprazole 20 mg p.o. daily. 7. Metformin 500 mg p.o. twice daily (new dose). HOSPITAL COURSE: Mr. Adame is a 51-year-old male who presents to the emergency room with complaints of severe epigastric pain and intractable vomiting. The patient was admitted for management of these symptoms. He received IV fluid hydration and was started on Carafate. Over the course of the next few days, the patient's abdominal discomfort resolved. The etiology behind his abdominal pain, however, is not clear. In the past, he was diagnosed with peptic ulcer disease; however, he has been on omeprazole at least since this past November. The patient's pain subsided without any significant intervention making me feel that peptic ulcer disease is unlikely the cause of symptoms at this point. The patient was not seen by Gastroenterology during the course of this hospitalization; however, he has been instructed to follow up with GI if his abdominal pain comes back. The patient states that he is interested in getting a followup appointment with Dr. Case regardless of the pain coming back or not. The patient's diet was slowly advanced to regular and he tolerated this without any difficulty. During the course of the hospitalization, the patient's hemoglobin A1c was obtained. This was mildly elevated at 7.7%. He was already on metformin 500 mg p.o. daily and this was increased to twice daily. The patient will need to continue to monitor his blood sugars and follow up with his primary care provider for further adjustments in his metformin dose. FOLLOWUP CONCERNS: The patient is being discharged home today, 02/26/17. He is to follow up with Dr. Mathews in the next 4 to 7 days. ACTIVITY LEVEL: As tolerated. DIET: Diabetic. CONDITION ON DISCHARGE: Stable. TIME SPENT: 35 minutes were spent discharging this patient. [id number]/[facility] #: [id number] [place]UB[place]
== END 2017-02-26 16:00 | disposition home or self-care (01) ==
LOC: ED 14:15 → MED 19:19
PROVIDERS: ADMIT Hospitalist; ATTEND Hospitalist
DX: R10.13 Epigastric pain (principal); R11.2 Nausea with vomiting, unspecified; K25.9 Gastric ulcer, unspecified as acute or chronic, without hemorrhage or perforation; E11.9 Type 2 diabetes mellitus without complications; Q42.8 Congenital absence, atresia and stenosis of other parts of large intestine; F17.200 Nicotine dependence, unspecified, uncomplicated
CPT/HCPCS: 36415; 74020; 80048; 80053; 80307; 81003; 81015; 82140; 82150; 83036; 83690; 83735; 84484; 85025; 86140; 93005; A9270-GY; J1170; J2270; J2405; J2765; J3010

== ENCOUNTER 2018-11-22 05:27 | Emergency (ER) | payer BC ==
[2018-11-22] MEDS ORDERED: Pantoprazole IV* 40 MG IV ONE (05:54)
[2018-11-22] MEDS ORDERED: NS 0.9% 1000 ML** 2,000 ML IV ONE (05:54)
[2018-11-22] MEDS ORDERED: Metoclopramide IV* 5 MG/ML 2 ML VIAL IV SLOW PU ONE (05:54)
[2018-11-22] MEDS ORDERED: Morphine 4 MG/ML VIAL (1 ml) 4 MG/ML VIAL IV ONE (05:55)
--- NOTE | 2018-11-22 05:59 | ED ---
GI/ HPI - HPI Summary HPI Summary: 53-year-old male presents with epigastric pain since yesterday. He states he has a history of this and feels that his ulcers are acting up. states has cold medication yesterday and it caused his ulcers to act up. He admits to nausea vomiting. No diarrhea. No blood in his stool or dark tarry stool. No chest pain or shortness of breath. No urinary symptoms. Has had his appendix removed. Has a history of back pain that is on chronic pain meds. has been seen for this before. He states he is not currently on any medication for stomach. - History of Current Complaint Chief Complaint: EDAbdPain Stated Complaint: ABD PAIN PER PT Pain Intensity: 8 - Additional Pertinent History Primary Care Physician: [facility] - Allergy/Home Medications Allergies/Adverse Reactions: Allergies Allergy/AdvReac Type Severity Reaction Status Date / Time No Known Allergies Allergy Verified 11/22/18 06:28 Home Medications: Home Medications metFORMIN* [Glucophage 500 MG TAB *] 1,000 mg PO BID 11/22/18 [History Confirmed 11/22/18] PMH/Surg Hx/FS Hx/Imm Hx Endocrine/Hematology History: Reports: Hx Diabetes - CONTROLLED BY DIET and metformin Denies: Hx Anticoagulant Therapy, Hx Blood Disorders, Hx Bone Marrow Disease , Hx Sickle Cell Disease, Hx Anemia Cardiovascular History: Reports: Hx Hypercholesterolemia Denies: Hx Congestive Heart Failure, Hx Hypertension, Hx Pacemaker/ICD Respiratory History: Denies: Hx Asthma GI History: Reports: Hx Ulcer Denies: Hx Cirrhosis, Hx Crohn's Disease, Hx Diverticulosis, Hx Gall Bladder Disease, Hx Gastroesophageal Reflux Disease History: Denies: Hx Kidney Stones, Hx Renal Disease Musculoskeletal History: Reports: Hx Back Problems Sensory History: Denies: Hx Cataracts, Hx Contacts or Glasses, Hx Eye Injury, Hx Eye Prosthesis, Hx Hearing Aid Opthamlomology History: Denies: Hx Cataracts, Hx Contacts or Glasses, Hx Eye Injury, Hx Eye Prosthesis Neurological History: Comment Only: Other Neuro Impairments/Disorders - PAIN CLINIC PT Psychiatric History: Denies: Hx Panic Disorder - Cancer History Hx Radiation Therapy: No Hx Palliative Cancer Treatment: No - Surgical History Surgery Procedure, Year, and Place: APPENDECTOMY;. COLONOSCOPY/ENDOSCOPY Hx Anesthesia Reactions: No - Immunization History Date of Tetanus Vaccine: Unk Date of Influenza Vaccine: None Infectious Disease History: No Infectious Disease History: Denies: Hx of Known/Suspected MRSA, History Other Infectious Disease, Traveled Outside the [place] in Last 30 Days - Family History Known Family History: Positive: None Negative: Cardiac Disease, Hypertension - Social History Alcohol Use: Weekly Alcohol Amount: 4 DRINKS Hx Substance Use: No Substance Use Type: Reports: None Hx Tobacco Use: Yes Smoking Status (MU): Current Every Day Smoker Type: Cigarettes Amount Used/How Often: 1 ppd Length of Time of Smoking/Using Tobacco: 30+ years Have You Smoked in the Last Year: Yes Review of Systems Negative: Fever Negative: Chest Pain Negative: Shortness Of Breath Positive: Abdominal Pain, Vomiting, Nausea. Negative: Diarrhea All Other Systems Reviewed And Are Negative: Yes Physical Exam Triage Information Reviewed: Yes Vital Signs On Initial Exam: Initial Vitals Temp Pulse Resp BP Pulse Ox 96.2 F 106 18 176/110 96 11/22/18 05:28 11/22/18 05:28 11/22/18 05:28 11/22/18 05:28 11/22/18 05:28 Vital Signs Reviewed: Yes Appearance: Positive: Well-Appearing Skin: Positive: Warm, Dry Head/Face: Positive: Normal Head/Face Inspection Eyes: Positive: Normal, Conjunctiva Clear ENT: Positive: Pharynx normal Respiratory/Lung Sounds: Positive: Clear to Auscultation, Breath Sounds Present Cardiovascular: Positive: Normal, RRR Abdomen Description: Positive: Soft, Other: - tenderness epigastric Bowel Sounds: Positive: Present Musculoskeletal: Positive: Normal Neurological: Positive: Normal Psychiatric: Positive: Normal Diagnostics - Vital Signs Vital Signs Temp Pulse Resp BP Pulse Ox 11/22/18 05:28 96.2 F 106 18 176/110 96 - Laboratory Result Diagrams: 11/22/18 06:27 11/22/18 06:27 Lab Statement: Any lab studies that have been ordered have been reviewed, and results considered in the medical decision making process. - Ultrasound No standard instances Ultrasound Interpretation Completed By: Radiologist Summary of Ultrasound Findings: IMPRESSION: No evidence of cholelithiasis or biliary duct dilatation is noted. Re-Evaluation - Re-Evaluation First Eval Re-Evaluation Time: 07:11 Change: Improved Comment: feeling better Second Eval Re-Evaluation Time: 08:36 Change: Improved Comment: feeling better, ready to go home GIGU Course/Dx - Course Course Of Treatment: 53-year-old male presents with epigastric pain since yesterday. He states he has a history of this and feels that his ulcers are acting up. states has cold medication yesterday and it caused his ulcers to act up. He admits to nausea vomiting. No diarrhea. No blood in his stool or dark tarry stool. No chest pain or shortness of breath. No urinary symptoms. Has had his appendix removed. Has a history of back pain that is on chronic pain meds. has been seen for this before. He states he is not currently on any medication for stomach. On exam has tenderness in epigastric. The patient appears uncomfortable. wbc normal. gave morphine, protonix, and reglan and feeling better but still some nausea. electrolytes normal. crp normal. troponin zero. lactic normal. gave dose of ativan and GI cocktail and symptoms improved. gallbladder ultrasound normal. will discharge with zofran for at home. patient understand and agrees with plan. - Diagnoses Differential Diagnoses - Male: Gastroenteritis (Viral), Urinary Tract Infection , Vomiting Provider Diagnoses: Epigastric pain, Nausea & vomiting Discharge - Sign-Out/Discharge Documenting (check all that apply): Patient Departure Patient Received Moderate/Deep Sedation with Procedure: No - Discharge Plan Condition: Good Disposition: HOME Prescriptions: Ondansetron ODT TAB* [Zofran 4 MG Odt TAB*] 4 mg PO Q6H PRN #20 tab.odt PRN Reason: Nausea Patient Education Materials: Epigastric Pain (ED) Referrals: Cali Mathews MD [Primary Care Provider] - Karl Case MD [Medical Doctor] - Additional Instructions: Take omeprazole once a day Take Zofran every 6 hours as needed for nausea Avoid acidic foods Follow up with primary within 5 days Follow up with GI if no improvement Return to ED if develop any new or worsening symptoms - Billing Disposition and Condition Condition: GOOD Disposition: Home
[2018-11-22 06:43] LABS: ABS Monocytes 0.5 10^3/ul (0-0.8); Eosinophil % 0.3 %; Hematocrit 45 % (42-52); Hemoglobin 15.6 g/dL (14.0-18.0); Lymphocyte % 17.4 %; Mean Corpuscular HGB Conc 35 g/dL (31-36); Mean Corpuscular Hemoglobin 32 pg (27-31); Mean Corpuscular Volume 93 fL (80-94); Mean Platelet Volume 8.1 fL (7.4-10.4); Platelet Count 220 10^3/uL (150-450); Red Blood Count 4.85 10^6 /uL (4.18-5.48); Red Cell Distribution Width 14 % (10-15); White Blood Count 5.5 10^3/uL (3.5-10.8)
[2018-11-22 06:55] LABS: Albumin 4.4 g/dL (3.2-5.2); Albumin/Globulin Ratio 1.6 (1-3); BUN/Creatinine Ratio 19.2 (8-20); C Reactive Protein 2.92 mg/L (<8.01); Calcium 9.2 mg/dL (8.6-10.3); EGFR African American 125.5 (>60); EGFR Non-African American 103.7 (>60); Globulin 2.8 g/dL (2-4); Magnesium 1.9 mg/dL (1.9-2.7); Potassium 3.9 mmol/L (3.5-5.0); Total Bilirubin 0.3 mg/dL (0.2-1.0); Total Protein 7.2 g/dL (6.4-8.9)
[2018-11-22] MEDS ORDERED: Lidocaine 2% VISCOUS* 15 ML UDC PO ONE (07:11)
[2018-11-22] MEDS ORDERED: Lorazepam PYXIS KEY PRN (07:11)
[2018-11-22] MEDS ORDERED: LORazepam INJ* 2 MG/ML 1 ML VIAL IV PUSH ONE (07:11)
[2018-11-22] MEDS ORDERED: Al Hydrox/Mg Hydrox/Simet LIQ* 30 ML UDC PO ONE (07:11)
[2018-11-22 08:56] VITALS: BP 128/85
== END 2018-11-22 08:55 | disposition home or self-care (01) ==
LOC: ED 05:27
DX: R10.13 Epigastric pain (principal); R11.2 Nausea with vomiting, unspecified; F17.210 Nicotine dependence, cigarettes, uncomplicated
CPT/HCPCS: 36415; 76705; 80053; 82150; 83605; 83690; 83735; 84484; 85025; 86140; 86308; 96374; 96375; 99283; A9270-GY; J2060; J2270; J2765